=== PATIENT | male | born 1995 | race Caucasian/White ===

== ENCOUNTER 2017-01-23 11:44 | Emergency (ER) | payer OTHER ==
[2017-01-23 11:53] VITALS: BP 124/70
--- NOTE | 2017-01-23 12:11 | ER Document Report ---
ED General - General Chief Complaint: Thigh Pain Stated Complaint: FEELS LUMPS IN RIGHT THIGH Time Seen by Provider: 01/23/17 12:09 Mode of Arrival: Ambulatory Information source: Patient Notes: Patient is a 22-year-old white male with no past medical history and takes no medications on a regular basis. He presents with 2 hard nonpainful lumps in right inguinal area. He also endorses multiple bug bites to bilateral lower extremities. He states he first noticed the lumps in his right groin approximately 5 days ago and he noticed a third one was appearing last night. He states the lumps only become sore after he presses on them for an extended period of time. He denies any redness or warmth to the lumps. He denies any fever, chills, weight loss, decreased appetite, cough, headache, sore throat, chest pain, abdominal pain, nausea, vomiting, diarrhea, dysuria, penile discharge. TRAVEL OUTSIDE OF THE [place] IN LAST 30 DAYS: No - Related Data Allergies/Adverse Reactions: No Known Allergies Allergy (Unverified 01/23/17 11:52) Past Medical History - General Information source: Patient - Social History Smoking Status: Never Smoker Frequency of alcohol use: None Drug Abuse: None Family History: None Patient has suicidal ideation: No Patient has homicidal ideation: No Renal/ Medical History: Denies: Hx Peritoneal Dialysis Review of Systems - Review of Systems Constitutional: See HPI EENT: See HPI Cardiovascular: No symptoms reported Respiratory: No symptoms reported Gastrointestinal: See HPI Genitourinary: See HPI Male Genitourinary: See HPI Musculoskeletal: No symptoms reported Skin: See HPI Hematologic/Lymphatic: See HPI Neurological/Psychological: No symptoms reported Physical Exam - Vital signs Vitals: Temp Pulse Resp BP Pulse Ox 97.8 F 68 12 124/70 100 01/23/17 11:51 01/23/17 11:51 01/23/17 11:51 01/23/17 11:51 01/23/17 11:51 - Notes Notes: PHYSICAL EXAM: CONSTITUTIONAL: Alert and oriented, well-appearing and in no acute distress. HENT: Normocephalic, atraumatic. Ear canals without erythema or foreign body, TMs pearly roblero with good bony landmarks. Nares clear without erythema, septal hematoma or deviation, airway patent. Oropharynx clear without erythema, tonsilar exudate or malocclusion. Trachea midline. Uvula midline. Moist mucous membranes. EYES: Pupils equal round and reactive to light, EOM intact. Sclera anicteric, conjunctiva are normal. No entrapment. NECK: supple without lymphadenopathy. No midline tenderness or paraspinous muscle spasms. No step-offs or deformities. ROM intact. HEART: Regular rate and rhythm without murmurs. LUNGS: CTAB and equal. No wheezes, rales or rhonchi. EXTREMITIES: Normal range of motion, no pitting edema. No cyanosis. Cap Refill < 3 seconds. NEURO: Cranial nerves grossly intact. Normal sensory/motor exams. SKIN: Warm and dry. Normal turgor. Scattered multiple erythematous macular papular rash to bilateral lower extremities without drainage or bleeding with overlying excoriations. Two non-tender, non-erythematous, non-warm lymph nodes in right inguinal area. Course - Re-evaluation Re-evalutation: 01/23/17 12:10 Patient seen and examined. Exam consistent with inguinal LAD. In setting of mutiple, excoriated insect bites to bilateral lower extremities feel this is source for LAD. Patient reports no other symptoms, low suspicion at this time for lymphoma, STI infection or other source of infection. Discussed local wound care to insect bites, and advised NSAIDs for pain. Advised f/u with PMD for evaluation of LAD if no improvement. At this time, will discharge with return precautions and follow-up recommendations. Verbal discharge instructions given at the bedside and opportunity for questions given. Medication warnings reviewed. Patient is in agreement with this plan and has verbalized understanding of return precautions and the need for primary care follow-up in the next 24-72 hours. - Vital Signs Vital signs: Temp Pulse Resp BP Pulse Ox 97.8 F 68 12 124/70 100 01/23/17 11:51 01/23/17 11:51 01/23/17 11:51 01/23/17 11:51 01/23/17 11:51 Discharge - Discharge Clinical Impression: Inguinal lymphadenopathy Condition: Stable Disposition: HOME, SELF-CARE Instructions: Family Physicians / Practices Additional Instructions: Lymphadenopathy You have enlargement of lymph glands, called lymphadenopathy. Lymph glands filter tissue fluids. They help to fight infection. Most of the time, enlarged lymph glands are not serious. Lymph glands may react to a viral or bacterial infection by becoming swollen and painful. When the infection goes away, the glands shrink. Sometimes a lymph gland will remain enlarged for a long time after an infection. Occasionally, a lymph gland may be overwhelmed by infection and form an abscess. If an enlarged lymph gland has signs that are suspicious for tumor, the doctor will recommend a biopsy. A suspicious gland usually is NOT painful, grows very slowly, and is rock-hard to touch. See the doctor or return if there is increasing swelling and redness, high fever, difficulty breathing, or any other change for the worse. Insect Bites You have been bitten by an insect. These bites can cause two types of swelling: an initial swelling due to insect saliva or injected poison, and a late reaction due to your body's allergic reaction. This initial local reaction may be uncomfortable but is not dangerous. Often there's an itchy "hive" at the bite location. This is treated with antihistamines, cold compresses, and resting the affected body part. The later reaction often develops about the second day. The entire area becomes very swollen, red, itchy, and tender. This is an allergic reaction. Your body is attacking the leftover insect saliva or venom. This type of allergy is unpleasant, but not dangerous. We treat this swelling with cortisone -type medicine. Sometimes we use antibiotics if we're worried about infection. Antihistamines help with the itch. If you develop a fever, chills, a red streak, or swollen glands in the area of the bite, infection may be starting. Return at once FOLLOW-UP CARE: If you have been referred to a physician for follow-up care, call the physician s office for an appointment as you were instructed or within the next two days. If you experience worsening or a significant change in your symptoms, notify the physician immediately or return to the Emergency Department at any time for re-evaluation.. Prescriptions: Neomy Sulf/Bacitrac Zn/Poly [Triple Antibiotic Ointment] 28 gm TP TID #1 oint..gm.
== END 2017-01-23 12:52 | disposition home or self-care (01) ==
LOC: ER 11:44
DX: R59.0 Localized enlarged lymph nodes (principal); M79.651 Pain in right thigh
CPT/HCPCS: 99281